=== PATIENT | female | born 1980 | race Caucasian/White ===

== ENCOUNTER 2021-10-05 19:26 | Emergency (ER) | payer BC, MEDICAID ==
[~2021-10-05] VITALS: Ht 162.6 cm; Wt 106.6 kg
[2021-10-05 19:42] VITALS: BP_SYST 172
--- NOTE | 2021-10-05 20:30 | NUR ---
Pt brought by self, A&Ox4, pt presents to ER with cough and congestion, skin pink and warm, cap refill <3, VSS, repirations even and unlabored.
[2021-10-05] MEDS ORDERED: GUAI100S14 PO (20:49)
--- NOTE | 2021-10-05 21:15 | NUR ---
Dr Garcia evaluating patient at bedside
[2021-10-05 22:26] VITALS: BP_SYST 165
--- NOTE | 2021-10-05 22:27 | NUR ---
Patient given written and verbal discharge instructions and verbalizes understanding. ER MD discussed with patient the results and treatment provided. Patient in stable condition. ID arm band removed. Rx of Robitussin given. Patient educated on pain management and to follow up with PMD. Pain Scale 0/10 Opportunity for questions provided and answered. Medication side effect fact sheet provided.
== END 2021-10-05 22:26 | disposition home or self-care (01) ==
LOC: SED 19:26
DX: J06.9 Acute upper respiratory infection, unspecified (principal); R05.1 Acute cough; Z20.822 Contact with and (suspected) exposure to COVID-19
CPT/HCPCS: 36415; 71045; 99284

== ENCOUNTER 2022-05-13 20:26 | Emergency (ER) | payer MEDICAID ==
[~2022-05-13 20:26] MED LIST: GUAI100S14 PO
== END 2022-05-14 00:10 | disposition left against medical advice (07) ==
LOC: SED 20:26
DX: M25.532 Pain in left wrist (principal); Z53.21 Procedure and treatment not carried out due to patient leaving prior to being seen by health care provider

== ENCOUNTER 2023-03-11 10:50 | Emergency (ER) | payer MEDICAID ==
[~2023-03-11] VITALS: Ht 160 cm; Wt 109.8 kg
[~2023-03-11 10:50] MED LIST changes: +HYDR-3917 PO
[2023-03-11 11:20] VITALS: BP_SYST 171; PULSE 68; RESP 18; TEMP 98.3; O2SAT 98
[2023-03-11] MEDS ORDERED: CIPR500T5 PO (11:51)
[2023-03-11] MEDS ORDERED: CORTEARS RIGHT EAR (11:56)
[2023-03-11] MEDS ORDERED: HYDROcodone/ACETAMIN 10-325 MG TAB PO ONE (12:00)
[2023-03-11 16:40] VITALS: BP_SYST 171; PULSE 68; RESP 18; TEMP 98.3; O2SAT 98
== END 2023-03-11 16:41 | disposition home or self-care (01) ==
LOC: SED 10:50
DX: H60.91 Unspecified otitis externa, right ear (principal); I16.0 Hypertensive urgency; H92.01 Otalgia, right ear; R22.0 Localized swelling, mass and lump, head; E11.9 Type 2 diabetes mellitus without complications; Z79.899 Other long term (current) drug therapy
CPT/HCPCS: 81025; 82962; 99283

== ENCOUNTER 2023-07-31 17:34 | Emergency (ER) | payer MEDICAID, OTHER ==
[~2023-07-31] VITALS: Ht 162.6 cm; Wt 111.1 kg
[~2023-07-31 17:34] MED LIST changes: +CIPR500T5 PO; +CORTEARS RIGHT EAR
[2023-07-31 17:37] VITALS: PULSE 61; RESP 17; TEMP 98; O2SAT 96
[2023-07-31 18:15] LABS: BASOPHILS # (AUTO) 0.1 K/uL (0.0-0.2); BASOPHILS % (AUTO) 0.6 % (0.0-2.0); EOSINOPHILS # (AUTO) 0.3 K/uL (0.0-0.4); EOSINOPHILS % (AUTO) 2.8 % (0.0-4.0); HEMATOCRIT 41.7 % (36-48); HEMOGLOBIN 14.2 g/dL (12.0-16.0); LYMPHOCYTES # (AUTO) 3.1 K/uL (1.0-5.5); MEAN CORPUSCULAR HEMOGLOBIN 32 pg (27-31); MEAN CORPUSCULAR HGB CONC 34 % (32-36); MEAN CORPUSCULAR VOLUME 94 fL (79.0-98.0); MONOCYTES # (AUTO) 0.6 K/uL (0.0-1.0); MONOCYTES % (AUTO) 5.5 % (1.7-9.3); NEUTROPHILS # (AUTO) 6.6 K/uL (1.8-7.7); NEUTROPHILS % (AUTO) 62.1 % (40.0-70.0); PLATELET COUNT (AUTO) 308 K/uL (130-430); RED BLOOD CELL COUNT(AUTO) 4.44 MIL/uL (4.2-6.2); RED CELL DISTRIBUTION WIDTH 13.7 % (9.0-15.0); WHITE BLOOD COUNT (AUTO) 10.6 K/uL (4.8-10.8)
[2023-07-31 18:26] LABS: CALCIUM 9.2 mg/dL (8.4-11.0); CREATININE 0.73 mg/dL (0.55-1.30); POTASSIUM 3.7 mmol/L (3.5-5.1)
[2023-07-31 18:37] LABS: ALBUMIN 3.6 g/dL (3.4-4.8); BILIRUBIN,DIRECT 0.1 mg/dL (0.0-0.3); TOTAL BILIRUBIN 0.3 mg/dL (0.0-1.0); TOTAL PROTEIN, SERUM 7.9 g/dL (6.4-8.3)
[2023-07-31] MEDS ORDERED: PRED20TA PO (19:28)
[2023-07-31] MEDS ORDERED: ACYC400T19 PO (19:28)
[2023-07-31] MEDS ORDERED: PEG15DRO12 RIGHT EYE (19:28)
[2023-07-31] MEDS ORDERED: MINE3.5O26 RIGHT EYE (19:28)
[2023-07-31 19:53] VITALS: PULSE 85; RESP 17; O2SAT 99
== END 2023-07-31 19:53 | disposition home or self-care (01) ==
LOC: SED 17:34
DX: G51.0 Bell's palsy (principal); R20.2 Paresthesia of skin; R42 Dizziness and giddiness; R51.9 Headache, unspecified; E11.9 Type 2 diabetes mellitus without complications; I10 Essential (primary) hypertension; Z79.899 Other long term (current) drug therapy
CPT/HCPCS: 36415; 70450-TC; 76376; 80048; 80076; 81025; 85025; 99284

== ENCOUNTER 2023-10-18 19:41 | Emergency (ER) | payer OTHER ==
[~2023-10-18] VITALS: Ht 162.6 cm; Wt 109.8 kg
[~2023-10-18 19:41] MED LIST changes: +ACYC400T19 PO; +MINE3.5O26 RIGHT EYE; +PEG15DRO12 RIGHT EYE; +PRED20TA PO
[2023-10-18 19:49] VITALS: BP_SYST 144; PULSE 60; RESP 20; TEMP 97.8; O2SAT 97
[2023-10-18 20:55] LABS: BILIRUBIN,URINE NEGATIVE (NEGATIVE); BLOOD, URINE NEGATIVE (NEGATIVE); CLARITY/URINE CLEAR (CLEAR); COLOR,URINE YELLOW (YELLOW); GLUCOSE,URINE NEGATIVE (NEGATIVE); KETONES,URINE NEGATIVE (NEGATIVE); LEUKOCYTE ESTERASE ,URINE TRACE (NEGATIVE); NITRITE, URINE NEGATIVE (NEGATIVE); PROTEIN URINE NEGATIVE (NEGATIVE); UROBILINOGEN,URINE 0.2 (0.2-1.0)
[2023-10-18 21:32] LABS: BACTERIA,URINE FEW /HPF (None Seen); RBC,URINE 0-3 /HPF (0-3)
[2023-10-18] MEDS: KETOROLAC TROMETHAMINE 30 MG VIAL IVP ONE (23:23)
[2023-10-18] MEDS: NACL 0.9% 1,000 ML IV ONE (23:23)
[2023-10-18 23:44] LABS: BASOPHILS # (AUTO) 0.1 K/uL (0.0-0.2); BASOPHILS % (AUTO) 0.6 % (0.0-2.0); EOSINOPHILS # (AUTO) 0.5 K/uL (0.0-0.4); EOSINOPHILS % (AUTO) 5.5 % (0.0-4.0); HEMATOCRIT 40.5 % (36-48); HEMOGLOBIN 13.7 g/dL (12.0-16.0); LYMPHOCYTES % (AUTO) 31.9 % (20.5-51.5); MEAN CORPUSCULAR HEMOGLOBIN 32 pg (27-31); MEAN CORPUSCULAR HGB CONC 34 % (32-36); MEAN CORPUSCULAR VOLUME 93 fL (79.0-98.0); MONOCYTES # (AUTO) 0.6 K/uL (0.0-1.0); NEUTROPHILS # (AUTO) 5.2 K/uL (1.8-7.7); PLATELET COUNT (AUTO) 311 K/uL (130-430); RED BLOOD CELL COUNT(AUTO) 4.33 MIL/uL (4.2-6.2); RED CELL DISTRIBUTION WIDTH 14.4 % (9.0-15.0); WHITE BLOOD COUNT (AUTO) 9.3 K/uL (4.8-10.8)
[2023-10-19] MEDS: MORPHINE 4 MG INJ. 4 MG/ML VIAL IVP ONE (00:22)
[2023-10-19 00:33] LABS: ALBUMIN 3.5 g/dL (3.4-4.8); BILIRUBIN,DIRECT 0.1 mg/dL (0.0-0.3); CREATININE 0.85 mg/dL (0.55-1.30); POTASSIUM 3.7 mmol/L (3.5-5.1); TOTAL BILIRUBIN 0.3 mg/dL (0.0-1.0); TOTAL PROTEIN, SERUM 7.3 g/dL (6.4-8.3)
[2023-10-19 02:18] VITALS: BP_SYST 120; PULSE 68; RESP 19; TEMP 97.3; O2SAT 96
== END 2023-10-19 02:18 | disposition home or self-care (01) ==
LOC: SED 19:41
DX: S39.011A Strain of muscle, fascia and tendon of abdomen, initial encounter (principal); R06.02 Shortness of breath; E11.9 Type 2 diabetes mellitus without complications; I10 Essential (primary) hypertension; Z79.899 Other long term (current) drug therapy; X58.XXXA Exposure to other specified factors, initial encounter; Y93.89 Activity, other specified; Y92.89 Other specified places as the place of occurrence of the external cause; Y99.8 Other external cause status
CPT/HCPCS: 99285; 74176; 96374; 71045; 80076; 80048; 81000; 81001; 85025; 85379; 36415; 81025; 96375; 81015; J1885; J2270